=== PATIENT | female | born 2000 | race Caucasian/White ===

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

== ENCOUNTER 2023-05-28 10:48 | Emergency (ER) | payer MEDICAID ==
[~2023-05-28] VITALS: Ht 172.7 cm; Wt 138.0 kg
[2023-05-28 10:59] VITALS: TEMP 99.1
[2023-05-28 11:53] VITALS: BP 120/68; PULSE 84; RESP 16; O2SAT 99
[2023-05-28] MEDS: dexamethasone sod phosphate 10mg/ml inj PO STA (12:04)
== END 2023-05-28 12:34 | disposition home or self-care (01) ==
LOC: ER 10:48
DX: L29.9 Pruritus, unspecified (principal); R07.89 Other chest pain; Z88.1 Allergy status to other antibiotic agents
CPT/HCPCS: 93005; 99283; J1100